=== PATIENT | male | born 1985 | race Caucasian/White ===

== ENCOUNTER 2021-04-27 14:00 | Inpatient (IN) | payer OTHER, SELFPAY ==
--- NOTE | ~2021-04-27 | CT_ITS ---
EXAMINATION: CT ABDOMEN AND PELVIS WITH CONTRAST CLINICAL INFORMATION: Right lower quadrant pain/tenderness. Rule out appendicitis. COMPARISON: None TECHNIQUE: Multidetector volumetric images were obtained from the superior aspect of the liver through the pubic symphysis following administration on gated mL of Omnipaque 350 intravenous contrast. Sagittal and coronal reformatted images were obtained on the technologist's workstation. Oral contrast: No This CT examination was performed using dose optimization techniques as appropriate, variously including the following: *Automated exposure control *Adjustment of mA and/or kV according to patient size (this includes techniques or standardized protocols for targeted exams where dose is matched to indication/reason for exam; i.e. extremities or head) *Use of iterative reconstruction technique DLP: 1258 mGy-cm FINDINGS: LUNG BASES: There is bibasilar dependent atelectasis. LIVER, GALLBLADDER, AND BILIARY TREE: The liver is normal in size, shape, and attenuation. No focal hepatic lesion or biliary ductal dilatation is present. The gallbladder is unremarkable with no evidence of radiopaque gallstones, gallbladder wall thickening, or obvious pericholecystic inflammatory changes. PANCREAS: Unremarkable. SPLEEN: Unremarkable. ADRENAL GLANDS: Unremarkable. KIDNEYS AND URETERS: The kidneys are normal in size, shape, and attenuation. No hydronephrosis, hydroureter, or calculi seen. No perinephric stranding. BLADDER: Unremarkable. GASTROINTESTINAL TRACT: There is a 6 mm small appendicolith at the base of appendix with mild mural thickening and grayson appendix fat stranding consistent acute appendicitis. There is no free air or collection to suspect any perforation or abscess the appendix measures 1.3 cm in diameter. Visualized small bowel loops in the colon appears unremarkable. The stomach is nondistended. ABDOMINAL WALL: No significant hernia is appreciated. LYMPH NODES: Normal. VASCULAR: Unremarkable. PELVIC VISCERA: The prostate gland is normal size. Periprostatic fat planes are preserved. No inguinal hernia or abnormal lymph nodes. OSSEOUS STRUCTURES: Mild degenerative disc changes-S1 disc level. There is a rudimentary S1-S2 disc. CT/CT abdomen pelvis w con IMPRESSION: ACUTE APPENDICITIS without perforation or obstruction. Fleischner guidelines were followed.
[2021-04-27 15:19] VITALS: BP 134/75; PULSE 85; RESP 16; TEMP 37.4; O2SAT 98; BMI 38.9
--- NOTE | 2021-04-27 17:11 | ED_ITS ---
HPI - Abdominal Pain General Chief Complaint: Abdominal Pain Stated Complaint: abd pain Time Seen by Provider: 04/27/21 16:52 Source: patient Mode of arrival: ambulatory Limitations: no limitations History of Present Illness HPI narrative: 36-year-old male who presents emergency department for evaluation of abdominal pain. Patient states that the pain started yesterday at around 8:00 p.m. while he was watching TV. He states the pain came on gradually and got progressively worse. The patient states that he ate lunch yesterday at 2:00 p.m., this consisted of a hamburger submarine sandwich and cheese sticks. He states that he had no appetite and did not eat dinner last night. The patient had no appetite and did not eat breakfast or lunch, he had a candy bar at around 4:00 p.m. in the emergency department. He states he is feeling hot and cold but done not take his temperature. He had 1 episode of nausea and vomiting. He denied any diarrhea. He states he is also having right ear pain x3 days with no decreased hearing. The patient has not been vaccinated for COVID-19. He is not aware of any COVID-19 exposures. Related Data Home Medications Medication Instructions Recorded Confirmed No Known Home Meds 04/27/21 04/27/21 Allergies Allergy/AdvReac Type Severity Reaction Status Date / Time meperidine [From Demerol] Allergy Numbness Verified 04/27/21 15:18 promethazine [From Allergy Numbness Verified 04/27/21 15:18 Phenergan] Review of Systems Review of Systems Yes all other systems are reviewed and are negative Physical Exam Verdana 4l Vital Signs: Verdana 4d Verdana 4d Vital Signs: Verdana 4d Verdana 4Bd Last Vital Signs Verdana 4d Water Safety Teacher New 4d Water Safety Teacher New 4d Temp 99.4 F 04/27/21 19:32 Water Safety Teacher New 4d Pulse 93 04/27/21 19:32 Water Safety Teacher New 4d Resp 17 04/27/21 19:32 BP 122/67 04/27/21 19:32 Pulse Ox 97 04/27/21 19:32 BMI result Body Mass Index 38.9 Const: General: cooperative and no acute distress Orientation/consciousness: orien nel to person and oriented to place Limitations: no limitations HENMT: Head: Yes normal to inspection, Yes normocephalic and Yes atraumatic Ears: external ears normal General nose exam: Normal external nose present Face and sinus: Yes normal facial exam Mouth: Normal oral and palatal mucosa present Throat: Yes posterior oropharynx normal Eyes: General: appearance normal, both eyes and all related structures Pupils: Equal, round and reactive pupils present Neck: Neck: Yes normal visual inspection, Yes no lymphadenopathy, Yes trachea midline and Yes supple Chest: Chest palpation & inspection: normal inspection of the chest and normal palpation of entire chest wall Resp: Effort & Inspection: normal respiratory effort and able to speak in complete sentences Auscultation: clear to auscultation bilaterally Cardio: Rate: regular rate Rhythm: regular rhythm Heart sounds: S1 normal heart sound present, S2 normal heart sound present and no murmurs GI: Inspection: Yes normal to inspection Palpation (GI): Soft to palpation, Tenderness to palpation present (GI) in the RLQ ( Moderate to severe) and suprapubicly ( moderate) and Guarding due to palpation present (GI) in the RLQ Auscultation: normal bowel sounds : General: Yes no CVA tenderness Back/Spine/Pelvis: Back: no CVA tenderness Skin: General skin exam: no rashes or lesions noted Neuro: General: oriented to person and oriented to place Cranial nerves: Yes CN's II-XII intact bilaterally and Yes Equal, round and reactive pupils present Cognition (Neuro): normal cognition Motor exam (neuro): 5/5 motor strength present throughout Extrem: General: Yes normal to inspection Psych: Appearance: grossly normal Speech and movement: Normal speech and movement present Affect: normal affect Attitude: cooperative Thought process: Normal thought process present Thought content: Normal thought content present Course Course Course Narrative: 36-year-old male with no significant past medical history who presents emergency department for evaluation of gradual onset of abdominal pain which began last night at 8:00 p.m. and got progressively worse. The patient had 1 episode of nausea and vomiting. He has felt hot and cold but did not take his temperature. The patient has had no appetite since onset of his symptoms and did not eat breakfast or lunch today, he did have a candy bar around 4:00 p.m. today. Vital signs were normal Except for a slightly elevated temperature of 99.4? F. His examination did reveal significant right lower quadrant tenderness with voluntary guarding and suprapubic tenderness. The differential includes was not limited to appendicitis, pancreatitis, diverticulitis, kidney stone. I ordered a CBC, CMP, PT /INR, PTT, lipase, urinalysis, CT abdomen pelvis with IV contrast, Toradol 15 mg IV and normal saline IV x1 L. The patient will kept NPO. 1937: The patient only got minimal relief of his pain with Toradol. He was given morphine 4 mg IV x2 doses with some improvement. Patient's CT scan is consistent with acute appendicitis with no perforation or abscess noted. I did discuss the patient's presentation with the covering surgeon Dr. White. The patient will be admitted to her service with planned surgery in the morning. Patient was ordered to get Zosyn 3.375 mg IV and D5 LR at 125 cc/hour. MDM - Abdominal Pain Lab Data Result diagrams: 04/27/21 17:27 04/27/21 17:27 Labs: Lab Results 04/27/21 04/27/21 04/27/21 Range/Units 17:27 17:27 17:27 WBC 14.9 H (4.8-10.8) X10*3/uL RBC 4.99 (4.60-5.80) X10*6/uL Hgb 14.6 (14.0-18.0) g/dl Hct 43.0 (42.0-52.0) % MCV 86.2 (80.0-98.0) fL MCH 29.3 (27.0-33.0) pg MCHC 34.0 (31.0-36.0) g/dl RDW 12.5 (11.0-16.0) % Plt Count 205 (160-400) X10*3/uL MPV 10.7 (9.4-12.4) fL Immature Gran % (Auto) 0.3 (0.0-0.4) % Neut % (Auto) 80.4 H (45-73) % Lymph % (Auto) 12.3 L (20-40) % [place] % (Auto) 6.4 (2-11) % Eos % (Auto) 0.4 (0-4) % Baso % (Auto) 0.2 (0-2) % Lymph # (Auto) 1.8 (1.2-4.9) X10*3/uL [place] # (Auto) 1.0 (0.1-1.2) X10*3/uL Eos # (Auto) 0.1 (0.0-0.4) X10*3/uL Baso # (Auto) 0.0 (0.0-0.2) X10*3/uL Abs Immat Gran (auto) 0.04 H (0.00-0.03) X10*3/uL Absolute Neuts (auto) 12.0 H (2.0-8.3) x10*3/uL Absolute Nucleated RBC 0.000 (0.0-0.012) X10*3/uL Nucleated RBC % (auto) 0.0 (0.0-0.2) /100WBC PT 12.6 (9.9-13.0) SEC INR 1.1 (0.9-1.1) APTT 31.0 (24.1-38.0) SEC Sodium 138 (135-145) mmol/L Potassium 4.3 (3.3-5.1) mmol/L Chloride 104 (96-108) mmol/L Carbon Dioxide 27 (22-29) mmol/L Anion Gap 11 L (12-20) BUN 8 L (9-16) mg/dL Creatinine 0.98 (0.5-1.4) mg/dL Estim Creat Clear Calc 163.8 Estimated GFR > 60 Random Glucose 162 H (60-115) mg/dL Calcium 9.7 (8.4-10.2) mg/dL Total Bilirubin 2.2 H (0.0-1.0) mg/dL AST 16 (5-37) U/L ALT 21 (0-40) U/L Alkaline Phosphatase 94 (39-117) U/L Total Protein 7.3 (6.5-8.0) g/dL Albumin 4.3 (3.5-5.0) g/dL Lipase 36 (8-78) U/L COVID-19 (LONG) (Negative) COVID-19 Clin Com 04/27/21 Range/Units 17:27 WBC (4.8-10.8) X10*3/uL RBC (4.60-5.80) X10*6/uL Hgb (14.0-18.0) g/dl Hct (42.0-52.0) % MCV (80.0-98.0) fL MCH (27.0-33.0) pg MCHC (31.0-36.0) g/dl RDW (11.0-16.0) % Plt Count (160-400) X10*3/uL MPV (9.4-12.4) fL Immature Gran % (Auto) (0.0-0.4) % Neut % (Auto) (45-73) % Lymph % (Auto) (20-40) % [place] % (Auto) (2-11) % Eos % (Auto) (0-4) % Baso % (Auto) (0-2) % Lymph # (Auto) (1.2-4.9) X10*3/uL [place] # (Auto) (0.1-1.2) X10*3/uL Eos # (Auto) (0.0-0.4) X10*3/uL Baso # (Auto) (0.0-0.2) X10*3/uL Abs Immat Gran (auto) (0.00-0.03) X10*3/uL Absolute Neuts (auto) (2.0-8.3) x10*3/uL Absolute Nucleated RBC (0.0-0.012) X10*3/uL Nucleated RBC % (auto) (0.0-0.2) /100WBC PT (9.9-13.0) SEC INR (0.9-1.1) APTT (24.1-38.0) SEC Sodium (135-145) mmol/L Potassium (3.3-5.1) mmol/L Chloride (96-108) mmol/L Carbon Dioxide (22-29) mmol/L Anion Gap (12-20) BUN (9-16) mg/dL Creatinine (0.5-1.4) mg/dL Estim Creat Clear Calc Estimated GFR Random Glucose (60-115) mg/dL Calcium (8.4-10.2) mg/dL Total Bilirubin (0.0-1.0) mg/dL AST (5-37) U/L ALT (0-40) U/L Alkaline Phosphatase (39-117) U/L Total Protein (6.5-8.0) g/dL Albumin (3.5-5.0) g/dL Lipase (8-78) U/L COVID-19 (LONG) Negative (Negative) COVID-19 Clin Com See Note Discharge Plan Discharge Prescriptions: No Action No Known Home Meds 0RF [facility] Past Medical History [facility] Narrative: Past medical history: None. Past surgical history: None. Social history: He denies tobacco use. He drinks alcohol occasionally but has not had any alcohol to drink in 2 weeks. He denies drug use. 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 Social History Social History Alcohol intake: unknown Patient Tobacco Use Status: Tobacco use Unknown Use of substances other than those prescribed or required for medical reasons: Unknown Advance Directives: No Advance Directives Information Provided: No
[2021-04-27 17:32] LABS: MANUAL DIFF FLAG NO
[2021-04-27 17:33] LABS: Basophils Percent Auto 0.2 % (0-2); Eosinophils Absolute Auto 0.1 X10*3/uL (0.0-0.4); Eosinophils Percent Auto 0.4 % (0-4); Hemoglobin 14.6 g/dl (14.0-18.0); Imm Gran Abs Auto 0.04 X10*3/uL (0.00-0.03); Imm Gran Pct Auto 0.3 % (0.0-0.4); Lymphocytes Absolute Auto 1.8 X10*3/uL (1.2-4.9); Lymphocytes Percent Auto 12.3 % (20-40); Mean Corpuscular Hemoglobin 29.3 pg (27.0-33.0); Mean Corpuscular Volume 86.2 fL (80.0-98.0); Mean Platelet Volume 10.7 fL (9.4-12.4); Monocytes Percent Auto 6.4 % (2-11); Neutrophils Percent Auto 80.4 % (45-73); Platelet Count 205 X10*3/uL (160-400); Red Blood Count 4.99 X10*6/uL (4.60-5.80); Red Cell Distribution Width 12.5 % (11.0-16.0); White Blood Count 14.9 X10*3/uL (4.8-10.8)
[2021-04-27] MEDS: Ketorolac Tromethamine 30 MG/ML VIAL 15 MG IVPUSH (17:34)
[2021-04-27] MEDS: 0.9 % Sodium Chloride 1,000 ML 999 ML IV (17:34)
[2021-04-27 17:45] LABS: INTERNATIONAL NORM RATIO 1.1 (0.9-1.1); Prothrombin Time 12.6 SEC (9.9-13.0)
[2021-04-27 17:53] LABS: COVID-19 Test Negative (Negative); IDNOW Serial# 9DD0AD1C
[2021-04-27 18:05] LABS: Alanine Aminotransferase 21 U/L (0-40); Albumin Level 4.3 g/dL (3.5-5.0); Alkaline Phosphatase 94 U/L (39-117); Anion Gap 11 (12-20); Aspartate Amino Transferase 16 U/L (5-37); Bilirubin Total 2.2 mg/dL (0.0-1.0); Blood Urea Nitrogen 8 mg/dL (9-16); Calcium 9.7 mg/dL (8.4-10.2); Carbon Dioxide 27 mmol/L (22-29); Chloride 104 mmol/L (96-108); Creatinine Clr Calc Pharmacy 163.8; Estimated Glomerular Filt Rate > 60; Glucose Random 162 mg/dL (60-115); Lipase 36 U/L (8-78); Potassium 4.3 mmol/L (3.3-5.1); Sodium 138 mmol/L (135-145); Total Protein 7.3 g/dL (6.5-8.0)
[2021-04-27] MEDS: iohexoL 350 MG/ML 100 ML INFUS..BTL IV (18:27)
[2021-04-27] MEDS: Morphine Sulfate 4 MG/ML CARTRIDGE IVPUSH ×2 (18:38→19:53)
[2021-04-27 19:32] VITALS: BP 122/67; PULSE 93; RESP 17; TEMP 37.4; O2SAT 97
--- NOTE | 2021-04-27 19:34 | PHA.MEDREC ---
Pharmacy Consult ? Medication Reconciliation Pharmacy has completed the medication reconciliation. No home medications. Lisa Perry, AntonioD
[2021-04-27] MEDS: Piperacillin Sodium/Tazobactam 3.375 GM in 0.9 % Sodium Chloride 50 ML IV (19:51)
[2021-04-27] MEDS: Dextrose 5 % and Lactated Ring 1,000 ML 125 ML IVCONT (19:55)
--- NOTE | 2021-04-27 19:57 | PC.NURSE ---
prior to abx admin, this rn verified with dr sunshine that there were no blood cultures ordered. per bita, cultures not needed
[2021-04-27 21:00] VITALS: BP 108/66; PULSE 98; RESP 16; TEMP 37.4; O2SAT 97
[2021-04-27] MEDS: ondansetron HCL 4 MG/2 ML VIAL IVPUSH (21:03)
[2021-04-27] MEDS: Famotidine/PF 20 MG/2 ML VIAL IVPUSH (21:03)
[2021-04-27 23:39] VITALS: BP 106/64; PULSE 94; RESP 17; TEMP 38.3; O2SAT 98
[2021-04-27] MEDS: Ketorolac Tromethamine 30 MG/ML VIAL IVPUSH (23:41)
--- NOTE | 2021-04-27 23:47 | PC.NURSE ---
Callum RN TT Dr White to notify that pt is febrile orally at 100.9 and this RN requesting PRN tylenol as well as additional admission orders. Awaiting reply from .
--- NOTE | 2021-04-27 23:49 | PC.NURSE ---
Per Cindy, no additional orders for tylenol at this time, just stay with toradol.
[2021-04-28] VITALS (12 sets, daily range): BP systolic 105–140; BP diastolic 52–80; PULSE 82–99; RESP 14–20; TEMP 36.7–38.1; O2SAT 93–98
--- NOTE | 2021-04-28 02:30 | PC.NURSE ---
This RN TT Cindy to clarify IVF. Per MD, stop D5LR and begin half normal.
[2021-04-28] MEDS: Piperacillin Sodium/Tazobactam 3.375 GM in 0.9 % Sodium Chloride 50 ML IV ×4 (02:39→20:12)
[2021-04-28] MEDS: Sodium Chloride 0.45 % 1,000 ML 100 ML IVCONT ×2 (02:40→13:53)
--- NOTE | 2021-04-28 03:09 | PC.NURSE ---
Report called to Sugey HUYNH in Overflow
[2021-04-28] MEDS: ondansetron HCL 4 MG/2 ML VIAL IVPUSH ×2 (03:52→20:14)
[2021-04-28] MEDS: Morphine Sulfate 4 MG/ML CARTRIDGE IVPUSH ×3 (04:01→22:11)
[2021-04-28] MEDS: Ketorolac Tromethamine 30 MG/ML VIAL IVPUSH (06:09)
[2021-04-28] MEDS: Famotidine/PF 20 MG/2 ML VIAL IVPUSH ×2 (07:57→20:14)
[2021-04-28] MEDS: 0.9 % Sodium Chloride Flush 3 ML SYRINGE IVFLUSH (07:58)
--- NOTE | 2021-04-28 09:08 | P.HPGS_ITS ---
History of Present Illness History of Present Illness Date of Service: 04/28/21 Chief complaint: Appendicitis Narrative: Buddy Velez is a 36 year old male who is an a work job here for the next few weeks and yesterday started feeling abdo pain and not well. Came to the ER as the pain got worse all afternoon and here was noted to have elevated wbc and rlq tenderness and CT scan shows appendicitis. He generally is healthy no issues no resp cardiac diarrhea or constipation Review of Systems Verdana 4l Review of Systems: Yes all other systems are reviewed and Verdana 4d are negative [facility] Family History Pertinent family history: noncontributory Social History Social History (Updated 04/28/21 @ 09:11 by Hope White MD) Alcohol intake: unknown Patient Tobacco Use Status: Current someday Tobacco user Years Smoked: dips tobacco Use of substances other than those prescribed or required for medical reasons: Unknown Advance Directives: No Advance Directives Information Provided: No Meds Allergies Allergy/AdvReac Type Severity Reaction Status Date / Time meperidine [From Demerol] Allergy Numbness Verified 04/27/21 19:50 promethazine [From Allergy Numbness Verified 04/27/21 19:50 Phenergan] Active Medications: Current Medications Famotidine (Famotidine/Pf 20 Mg/2 Ml Vial) 20 mg IVPUSH BID [facility] Last Admin: 04/28/21 07:57 Dose: 20 mg Documented by: Dextrose/Lactated Ringer's (D5lr) 1,000 mls @ 125 mls/hr IVCONT .Q8H [facility] Last Admin: 04/28/21 02:41 Dose: Not Given Documented by: Piperacillin Sod/Tazobactam (Sod 3.375 gm/ Sodium Chloride) 50 mls @ 100 mls/hr IV Q6H [facility] Last Infusion: 04/28/21 08:53 Dose: Infused Documented by: Sodium Chloride () 1,000 mls @ 100 mls/hr IVCONT .Q10H [facility] Last Admin: 04/28/21 02:40 Dose: 100 mls/hr Documented by: Ketorolac Tromethamine (Ketorolac Tromethamine 30 Mg/Ml Vial) 30 mg IVPUSH Q6H [facility] Last Admin: 04/28/21 06:09 Dose: 30 mg Documented by: Morphine Sulfate (Morphine Sulfate 4 Mg/Ml Cartridge) 4 mg IVPUSH Q6H PRN; Protocol PRN Reason: Pain, Moderate (Pain Scale 4-6 Last Admin: 04/28/21 04:01 Dose: 4 mg Documented by: Ondansetron HCl (Ondansetron Hcl 4 Mg/2 Ml Vial) 4 mg IVPUSH Q8H [facility] Last Admin: 04/28/21 03:52 Dose: 4 mg Documented by: Pharmacy Consult (Consult Rx Perform Med Rec) 1 each MISCELLANE ONCE PRN PRN Reason: Consult order Sodium Chloride (0.9 % Sodium Chloride Flush 3 Ml Syringe) 3 ml IVFLUSH QSHIFT [facility] Last Admin: 04/28/21 07:58 Dose: 3 ml Documented by: Home Medications Medication Instructions Recorded Confirmed Last Taken Type No Known Home Meds 04/27/21 04/27/21 Unknown History Physical Exam Verdana 4l Vital Signs: Verdana 4d Verdana 4d Vital Signs: Verdana 4d Verdana 4Bd Last Vital Signs Verdana 4d Electronic Design Engineer New 4d Electronic Design Engineer New 4d Temp 99.2 F 04/28/21 03:57 Electronic Design Engineer New 4d Pulse 92 04/28/21 02:42 Electronic Design Engineer New 4d Resp 18 04/28/21 04:01 BP 105/64 04/28/21 02:42 Pulse Ox 94 04/28/21 02:42 BMI result Body Mass Index 38.9 Const: Orientation/consciousness: oriented to person, oriented to place and oriented to time HENMT: Head: Yes normal to inspection Resp: Effort & Inspection: normal respiratory effort and able to speak in complete sentences Auscultation: clear to auscultation bilaterally Cardio: Rate: regular rate Rhythm: regular rhythm Heart sounds: S1 normal heart sound present and S2 normal heart sound present Skin: General skin exam: no rashes or lesions noted Neuro: General: oriented to person, oriented to place and oriented to time Extrem: General: Yes normal to inspection, Yes full ROM and Yes capillary refill normal Psych: Appearance: grossly normal Mental Status: mental status grossly normal Speech and movement: Normal speech and movement present Affect: normal affect Results Results Labs: Short CBC 04/27/21 Range/Units 17:27 WBC 14.9 H (4.8-10.8) X10*3/uL Hgb 14.6 (14.0-18.0) g/dl Hct 43.0 (42.0-52.0) % Plt Count 205 (160-400) X10*3/uL BMP 04/27/21 17:27 Sodium 138 Potassium 4.3 Chloride 104 Carbon Dioxide 27 BUN 8 L Creatinine 0.98 Calcium 9.7 Liver Function 04/27/21 Range/Units 17:27 Total Bilirubin 2.2 H (0.0-1.0) mg/dL AST 16 (5-37) U/L ALT 21 (0-40) U/L Alkaline Phosphatase 94 (39-117) U/L Albumin 4.3 (3.5-5.0) g/dL CT scan - chest: report reviewed and image reviewed Assessment and Plan (1) Acute appendicitis: Status: Acute Plan 36 year old male with acute appendicitis- admit , npo, ivf, iv antibx and plan for lap appy. risks and benefits discussed with the pt who understands and agrees with the plan. Quality Stroke Does the patient have a stroke diagnosis?: No VTE Prior VTE?: No VTE Risk Level:: Surgical - low VTE Device Contraindication: N/A - Device Ordered VTE Drug Contraindication: N/A - Med Ordered Procedures Date of Service Date of Service: 04/28/21
--- NOTE | 2021-04-28 09:43 | MHC.CM.PN ---
CM MET WITH PT WHO REPORTS HE IS IN THE AREA FOR WORK. 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
--- NOTE | 2021-04-28 09:50 | PC.NURSE ---
Pt sleeping at this time, spoke to Pt's , updated on POC. OR later this morning. Medicated as per MAR orders. 1/2NS running as per MAR orders. Per previous RN, pt is not on the D5 at this time per MD. Call lofton within reach, will continue to monitor.
--- NOTE | 2021-04-28 10:42 | P.CONAN_ITS ---
[facility] Active Problems Active Problems: All Active Problems (Updated 04/27/21 @ 19:38 by El Costa MD) Acute appendicitis (Acute) Past Medical History Functional capacity: independent ambulation Family History Family history of problems with anesthesia: No Surgical History History of Problems with Anesthesia: No Social History Social History (Updated 04/28/21 @ 09:11 by Hope White MD) Alcohol intake: unknown Patient Tobacco Use Status: Current someday Tobacco user Years Smoked: dips tobacco Use of substances other than those prescribed or required for medical reasons: Unknown Advance Directives: No Advance Directives Information Provided: No service: No Current occupational status: employed Meds Allergies Allergy/AdvReac Type Severity Reaction Status Date / Time meperidine [From Demerol] Allergy Numbness Verified 04/27/21 19:50 promethazine [From Allergy Numbness Verified 04/27/21 19:50 Phenergan] Active Medications: Current Medications Famotidine (Famotidine/Pf 20 Mg/2 Ml Vial) 20 mg IVPUSH BID [facility] Last Admin: 04/28/21 07:57 Dose: 20 mg Documented by: Dextrose/Lactated Ringer's (D5lr) 1,000 mls @ 125 mls/hr IVCONT .Q8H [facility] Last Admin: 04/28/21 02:41 Dose: Not Given Documented by: Piperacillin Sod/Tazobactam (Sod 3.375 gm/ Sodium Chloride) 50 mls @ 100 mls/hr IV Q6H [facility] Last Infusion: 04/28/21 08:53 Dose: Infused Documented by: Sodium Chloride () 1,000 mls @ 100 mls/hr IVCONT .Q10H [facility] Last Admin: 04/28/21 02:40 Dose: 100 mls/hr Documented by: Ketorolac Tromethamine (Ketorolac Tromethamine 30 Mg/Ml Vial) 30 mg IVPUSH Q6H [facility] Last Admin: 04/28/21 06:09 Dose: 30 mg Documented by: Morphine Sulfate (Morphine Sulfate 4 Mg/Ml Cartridge) 4 mg IVPUSH Q6H PRN; Protocol PRN Reason: Pain, Moderate (Pain Scale 4-6 Last Admin: 04/28/21 04:01 Dose: 4 mg Documented by: Ondansetron HCl (Ondansetron Hcl 4 Mg/2 Ml Vial) 4 mg IVPUSH Q8H [facility] Last Admin: 04/28/21 03:52 Dose: 4 mg Documented by: Pharmacy Consult (Consult Rx Perform Med Rec) 1 each MISCELLANE ONCE PRN PRN Reason: Consult order Sodium Chloride (0.9 % Sodium Chloride Flush 3 Ml Syringe) 3 ml IVFLUSH QSHIFT [facility] Last Admin: 04/28/21 07:58 Dose: 3 ml Documented by: Home Medications Medication Instructions Recorded Confirmed Last Taken Type No Known Home Meds 04/27/21 04/27/21 Unknown History Exam Exam Date and Time: April 28, 2021 1042 Height,Weight and Vital Signs: Height 6 ft 4 in Weight 145.15 kg Last Vital Signs Temp 99.2 F 04/28/21 03:57 Pulse 92 04/28/21 02:42 Resp 18 04/28/21 04:01 BP 105/64 04/28/21 02:42 Pulse Ox 94 04/28/21 02:42 Pertinent Lab Results Pertinent Lab Results: Laboratory Tests 04/27/21 04/27/21 04/27/21 17:27 17:27 17:27 WBC 14.9 H RBC 4.99 Hgb 14.6 Hct 43.0 MCV 86.2 MCH 29.3 MCHC 34.0 RDW 12.5 Plt Count 205 MPV 10.7 Immature Gran % (Auto) 0.3 Neut % (Auto) 80.4 H Lymph % (Auto) 12.3 L [place] % (Auto) 6.4 Eos % (Auto) 0.4 Baso % (Auto) 0.2 Lymph # (Auto) 1.8 [place] # (Auto) 1.0 Eos # (Auto) 0.1 Baso # (Auto) 0.0 Abs Immat Gran (auto) 0.04 H Absolute Neuts (auto) 12.0 H Absolute Nucleated RBC 0.000 Nucleated RBC % (auto) 0.0 PT 12.6 INR 1.1 APTT 31.0 Sodium 138 Potassium 4.3 Chloride 104 Carbon Dioxide 27 Anion Gap 11 L BUN 8 L Creatinine 0.98 Estim Creat Clear Calc 163.8 Estimated GFR > 60 Random Glucose 162 H Calcium 9.7 Total Bilirubin 2.2 H AST 16 ALT 21 Alkaline Phosphatase 94 Total Protein 7.3 Albumin 4.3 Lipase 36 COVID-19 (LONG) COVID-19 Clin Com 04/27/21 17:27 WBC RBC Hgb Hct MCV MCH MCHC RDW Plt Count MPV Immature Gran % (Auto) Neut % (Auto) Lymph % (Auto) [place] % (Auto) Eos % (Auto) Baso % (Auto) Lymph # (Auto) [place] # (Auto) Eos # (Auto) Baso # (Auto) Abs Immat Gran (auto) Absolute Neuts (auto) Absolute Nucleated RBC Nucleated RBC % (auto) PT INR APTT Sodium Potassium Chloride Carbon Dioxide Anion Gap BUN Creatinine Estim Creat Clear Calc Estimated GFR Random Glucose Calcium Total Bilirubin AST ALT Alkaline Phosphatase Total Protein Albumin Lipase COVID-19 (LONG) Negative COVID-19 Clin Com See Note Airway Mallampati Class: III TM Dist: >3cm Neck ROM: Full Heart: RRR Lungs: CTA Assessment and Plan Final Anesthetic Review Family History of Problems with Anesthesia: No History of Problems with Anesthesia: No ASA Class: II and Emergency Final Preanesthetic Review: No Changes in Pt Med Stat, Meds/Allgs Chart Reviewed, Consent Obtained/Reviewed and Anes Risks/Benef Reviewed Patient Risk: Intermediate Procedure Risk: Low Anesthetic Plan Anesthetic Plan: GA Disposition: Standard PACU
--- NOTE | 2021-04-28 11:00 | PC.NURSE ---
Pt to OR at this time.
--- NOTE | 2021-04-28 12:51 | PM.OP ---
Brief Operative Note Date of Service: 04/28/21 Pre-op diagnosis: appendicitis Procedure: lap appy Surgeon: Hope White MD Anesthesia: GETA Was an Dressing Room Porter used for this Procedure?: No Estimated blood loss (mL): 0 Pathology: other Condition: stable Disposition: PACU
--- NOTE | 2021-04-28 12:56 | PC.NURSE ---
#20 PRN angio in right AC asymptomatic.
--- NOTE | 2021-04-28 13:26 | PC.NURSE ---
Patient back to ED overflow. Patient wearing gold ring and necklace. Violet HUYNH aware.
--- NOTE | 2021-04-28 13:39 | PC.NURSE ---
Back from OR, IS teaching completed, pt now on 2L NC, aware to cough and deep breath along with IS use to prevent pnu. Call lofton within reach. Kitchen called for lunch tray. Will continue to monitor.
--- NOTE | 2021-04-28 14:20 | HO.POSTANES ---
Post Anesthesia Evaluation Post Anesthesia Evaluation Vital Signs: Vital Signs Temp Pulse Resp BP Pulse Ox 04/28/21 13:38 98.8 F 90 16 116/60 93 04/28/21 13:12 98.3 F 95 14 112/62 95 04/28/21 12:57 95 14 124/70 95 04/28/21 12:52 95 20 124/70 97 04/28/21 12:47 96 20 121/66 98 04/28/21 12:42 98.1 F 99 20 140/80 H 93 04/28/21 04:01 18 04/28/21 03:57 99.2 F 20 04/28/21 02:42 100.3 F 92 16 105/64 94 Anesthesia: General Endotracheal-GETA Mental Status: Awake Pain Control: Satisfactory Nausea/Vomiting: None Hydration: Adequate Anesthesia-Related Issues: No Anes. Related Issues
--- NOTE | 2021-04-28 20:30 | PC.NURSE ---
Assumed care of pt Pt resting on stretcher with eyes closed Breathing even and unlabored Pt easily arousable Pt medicated per MAY Pt tolerated well Will continue to monitor
--- NOTE | 2021-04-28 21:50 | PC.NURSE ---
Pt temp 100.6. TT Dr. White for tylenol Awaiting orders Will continue to monitor
[2021-04-28] MEDS: Acetaminophen 325 MG TABLET 650 MG PO (22:10)
[2021-04-29] VITALS: BP 113/60; PULSE 82; RESP 16; TEMP 37.7; O2SAT 98
[2021-04-29 00:34] VITALS: TEMP 36.9
[2021-04-29] MEDS: Piperacillin Sodium/Tazobactam 3.375 GM in 0.9 % Sodium Chloride 50 ML IV ×3 (01:10→14:14)
[2021-04-29] MEDS: Ketorolac Tromethamine 30 MG/ML VIAL IVPUSH (01:10)
[2021-04-29] MEDS: 0.9 % Sodium Chloride Flush 3 ML SYRINGE IVFLUSH (01:17)
[2021-04-29 05:46] VITALS: BP 130/79; PULSE 72; RESP 16; TEMP 36.6; O2SAT 95
[2021-04-29] MEDS: Famotidine/PF 20 MG/2 ML VIAL IVPUSH (09:13)
--- NOTE | 2021-04-29 13:48 | PC.NURSE ---
pt alert and oriented, vss, denies pain. pt ate a small of breakfast and lunch, taking in po fluids without difficulty. pt awaiting last dose of antibiotics then will be discharged.
--- NOTE | 2021-04-29 13:49 | PM.DS ---
DS: Providers Provider Date of Service: 04/29/21 Date of admission: 04/28/21 02:19 Date of discharge: 04/29/21 Primary care physician: Yanet Physician Admitting clinician: Hope White Discharging clinician: Hope White DS: Diagnosis Discharge Diagnosis (1) Acute appendicitis: Start date: 04/27/21 Status: Acute DS: Summary Hospital Course Hospital Course: pt is a 36 year old male who presented to the ER with appendicits and underwent lap appy . postop doing well. dc home - on augmentin for 5 more days and po pain meds. not perforated but exudative changes on the surface of the appendix. no lifting greater than 10 lbs until seen in office. fu with dr rowland or kati in 1 week. Status at Discharge Cognitive/behavioral status at discharge: fine Functional status at discharge: independent ambulation Overall status at discharge: patient is progressing back to baseline Time Spent with Patient Time attestation: Total time spent providing and/or coordinating discharge services: Discharge coordination time: Less than 30 minutes Specific discharge activities: no lifting greaer than 10 lbs nd no driving on narcotics Quality: Stroke Does the patient have a stroke diagnosis?: No Reason for No Anti-thrombotic at DC: Not indicated Reason for No Anticoagulant at DC: Not indicated Reason Not Initiating IV-Tpa: Not indicated Reason for No Anti-thrombotic by Day Two: Not indicated Reason for No Statin at DC: Not indicated Physical Exam Vital Signs: Vital Signs: Last Vital Signs Temp 97.9 F 04/29/21 05:46 Pulse 72 04/29/21 05:46 Resp 16 04/29/21 05:46 BP 130/79 04/29/21 05:46 Pulse Ox 95 04/29/21 05:46 BMI result Body Mass Index 38.9 GI: Other: abdo benign appropriate pain postop DS: Data Data Completed and Pending Pending studies at discharge: Pending at discharge 04/28/21 12:12 Surgical [PTH] Routine Imaging CT scan - pelvis: Radiologist's impression: ITS Impressions Abdomen/Pelvis CT 04/27/21 18:28 IMPRESSION: ACUTE APPENDICITIS without perforation or obstruction. Fleischner guidelines were followed. Discharge Plan Discharge Anticipated Discharge Date/Time: 04/29/21 14:30 Patient Disposition: Home, Self-Care Discharge Diagnosis: appendicitis Referrals: Physician,None [Primary Care Provider] - 1 Week (dr rowland or kati in one week ) Hope White MD [Physician] - 1 Week Discharge Medications: New oxycodone 5 mg Tablet 10 mg PO Q4H PRN (Reason: Pain, Mild (Pain Scale 1-3)) Qty: 20 0RF amoxicillin-pot clavulanate [Augmentin] 875-125 mg tablet 1 tab PO BID Qty: 10 0RF Discharge Orders: Discharge Order (Routine); Ordered 04/29/21 Ordered By: Hope White Diet: advance to usual diet Activity on Discharge: no lifting Stand Alone Forms: Patient Portal Discharge page Activity Restrictions/Additional Instructions: no lifting greater than 10 lbs. take antibiotics to completion Care Plan Goals: improve Health Concerns: none Plan of Treatment: antibiotics and physical rest Assessment: doing well Patient Instructions: Appendicitis (GEN), Laparoscopic Appendectomy (DC)
--- NOTE | 2021-04-29 13:59 | MHC.CM.PN ---
PT TO DC TODAY WITH NO SERVICES. PT WILL DRIVE HIMSELF
[2021-04-29 14:32] VITALS: BP 124/73; PULSE 80; RESP 14; O2SAT 99
--- NOTE | 2021-05-03 04:50 | OP_ITS ---
SURGEON: Hope White MD INDICATIONS: Patient is a 36-year-old male who presented to the emergency room with about a day history of right lower quadrant pain, nausea, and elevated white count, and CT scan confirming acutely inflamed appendix. As a result, he was admitted, IV hydration, n.p.o. IV antibiotics, and brought to the operating room. PREOPERATIVE DIAGNOSIS: Acute appendicitis. POSTOPERATIVE DIAGNOSIS: Acute appendicitis. PROCEDURE PERFORMED: Laparoscopic appendectomy. ESTIMATED BLOOD LOSS: COMPLICATIONS: ANESTHESIA: ASSISTANTS: SPECIMENS: FINDINGS: Acutely inflamed appendix consistent with appendicitis. DESCRIPTION OF PROCEDURE: Patient was brought to the operating room. Under Anesthesia guidance, he was intubated. He had compression stockings placed from before and had received preoperative antibiotics. His abdomen was prepped and draped in standard surgical fashion. An infraumbilical incision was created after numbing up the area with 0.25% Marcaine with epinephrine. Dissection was carried down to the anterior abdominal wall fascia, which was grasped with Maegan and transected. [address] Anjana trocar introduced. Pneumoperitoneum established with 15 mmHg. Camera was put in and everything looked okay. The right lower quadrant area had some fluid as well as some inflammatory signs. Two 5 mm ports were then placed under direct visualization; one in the suprapubic area and one in the left lower quadrant. This was done with local. Patient had just emptied his bladder before coming in to the operating room. Patient was positioned left side down and the lower quadrant area was investigated and acutely inflamed fibrinous exudative cover appendix was identified and elevated. The mesentery was taken down with the LigaSure and then the appendiceal-cecal junction identified and dissected out. In trying to get the Endo ABDON stapler across this area, it was a little difficult as the lateral aspect of the cecum was really stuck down and this did not give us much play. As a result, it was decided to immobilize the cecum in a little bit of the right ascending colon to allow this area to be elevated and then to allow the Endo ABDON blue load stapler to be fired right at the appendiceal-cecal base. This was carried out and the specimen removed with an EndoCatch bag. Pneumoperitoneum was then reestablished. Right lower quadrant area was suctioned and irrigated about a liter. No other lesions or areas of concerns were noted, and the staple lines to mesentery were intact and fine. The ports were then removed. The intraumbilical area had been opened up in order to allow the appendix to be remove, and now a [id number] suture was applied to close up the fascia. This was carried out and closed it up quite well. 4-0 Monocryl and the interrupted subcuticular fascia was used to approximate the skin edges. Steri-Strips were placed. At the end of the case, all sponge, instrument, needle counts were correct. Estimated blood loss was minimal. Specimen sent was the appendix. Hope White MD SR/SHANNAN / [id number]
== END 2021-04-29 14:49 | disposition home or self-care (01) | DRG 343 ==
LOC: HO.ED 19:38 → HO.EDOVER 04-28 02:44
PROVIDERS: Admitting Provider Surgery; Emergency Provider Emergency Medicine Emergency Medical Services; Visit Provider Surgery
PROC: 0DTJ4ZZ Resection of Appendix, Percutaneous Endoscopic Approach (ICD-10-PCS; CPT 44970; principal; 2021-04-28 10:00)
DX: K35.80 Unspecified acute appendicitis (principal); F17.220 Nicotine dependence, chewing tobacco, uncomplicated; Z71.6 Tobacco abuse counseling; Z20.822 Contact with and (suspected) exposure to COVID-19
CPT/HCPCS: 74177; 80053; 83690; 85025; 85610; 85730; 87635; 88304; 96361; 96365; 96375; 96376; 99285; J0131; J1100; J1885; J2250; J2270; J2405; J2543; J3010; Q9967

== ENCOUNTER → 2021-05-28 14:00 | Outpatient (BNVA) | payer OTHER, SELFPAY | PROVIDERS: Visit Provider Surgery ==